=== PATIENT | female | born 1960 | race Caucasian/White ===

== ENCOUNTER 2018-03-04 16:32 | Emergency (ER) | payer BC, OTHER ==
[2018-03-04 17:04] VITALS: BP 160/90
--- NOTE | 2018-03-04 17:19 | UC ---
Lower Extremity/Ankle HPI - HPI Summary HPI Summary: 57 year old female presents with left great toe pain after accidentally dropping a piece of wood on it yesterday morning. States was wearing a slipper at the time of injury. Notes ecchymosis, tenderness, and a blister to the proximal nail fold. Has taken ibuprofen x 1 dose this morning with some relief in pain. Pain worsens with weightbearing and ambulation. Denies erythema, numbness, or tingling. - History of Current Complaint Chief Complaint: UCLowerExtremity Stated Complaint: LEFT BIG TOE INJURY Time Seen by Provider: 03/04/18 16:58 Hx Obtained From: Patient Hx Last Menstrual Period: 02/23/18 Onset/Duration: Sudden Onset, Lasting Hours Severity Currently: Moderate Pain Intensity: 8 Aggravating Factor(s): Standing, Ambulation Alleviating Factor(s): Rest, OTC Meds Able to Bear Weight: Yes - Allergies/Home Medications Allergies/Adverse Reactions: Allergies Allergy/AdvReac Type Severity Reaction Status Date / Time No Known Allergies Allergy Verified 03/04/18 16:58 Home Medications: Home Medications Benazepril/Hydrochlorothiazide [Benazepril HCl/Hydrochlor 20-12.5 mg-] 1 tab PO DAILY 03/04/18 [History Confirmed 03/04/18] Hydrochlorothiazide TAB* [Hydrodiuril TAB*] 25 mg PO DAILY 03/04/18 [History Confirmed 03/04/18] PMH/Surg Hx/FS Hx/Imm Hx Cardiovascular History: Hypertension - Surgical History Surgical History: Yes Surgery Procedure, Year, and Place: ABLATION. NOSE SX. HERNIA REPAIN. LEFT KNEE - Family History Family History: Noncontributory - Social History Occupation: Employed Full-time Lives: With Family Alcohol Use: None Substance Use Type: None Smoking Status (MU): Never Smoked Tobacco Review of Systems All Other Systems Reviewed And Are Negative: Yes Constitutional: Positive: Negative Skin: Positive: Other - See HPI Respiratory: Positive: Negative Cardiovascular: Positive: Negative Motor: Positive: Negative Neurovascular: Positive: Negative Musculoskeletal: Positive: Other: - See HPI Neurological: Positive: Negative Is Patient Immunocompromised?: No Physical Exam Triage Information Reviewed: Yes Appearance: Well-Appearing, No Pain Distress, Well-Nourished Vital Signs: Initial Vital Signs Temp 97.5 F 03/04/18 16:55 Pulse 75 03/04/18 16:55 Resp 16 03/04/18 16:55 BP 160/90 03/04/18 16:55 Pulse Ox 99 03/04/18 16:55 Respiratory: Positive: No respiratory distress Cardiovascular: Positive: Pulses Normal Musculoskeletal: Positive: Other: - Tenderness and eccymosis noted to left great toe. There is an intact blister with clear serous fluid to proximal nail fold. There is a moderate subungal hematoma noted. No gross deformity. Neurological: Positive: Alert, Other: - Sensation intact distally. Skin Exam: Other - See above. Diagnostics - Radiology No standard instances Radiology Interpretation Completed By: Radiologist Summary of Radiographic Findings: Patient Name: LISA PETIT Medical Record#: [id number]. Ordering Physician: Davide Parisi NP Acct.#: [id number]. : 1960 Age: 57 Sex: F Location: [facility]. Exam Date: 1710 ADM Status: REG ER. Order Information: TOE LEFT GREAT. Accession Number: [id number]. CPT: 20228. HISTORY: pain s/p crush injury. COMPARISONS : None. VIEWS: 3 , Frontal, lateral, and oblique views of the first digit of the left foot. FINDINGS: BONE DENSITY: Normal. BONES: There is a nondisplaced fracture of the tuft of the distal phalanx of the first. digit. JOINTS: There is no arthropathy. ALIGNMENT: There is no dislocation. SOFT TISSUES: Unremarkable. OTHER FINDINGS: None. IMPRESSION: NONDISPLACED FRACTURE OF THE TUFT OF DISTAL PHALANX OF THE FIRST DIGIT. Lower Extremity Course/Dx - Course Course Of Treatment: 57 year old female presents with left great toe pain s/p dropping a piece of wood on her toe yesterday morning. Exam reveals left great toe ecchymosis, sunungual hematoma, and truamatic bulla to proximal nailfold. X- ray shows nondisplaced tuft fracture. Recommend conservative treatment with post -op shoe, NSAIDs, RICE, and good wound care. She is to follow up with orthopedic surgery within 7 days for evaluation. Warning symptoms reviewed. Verbalizes understanding and agrees with POC. - Differential Dx/Diagnosis Differential Diagnosis/HQI/PQRI: Contusion, Dislocation, Fracture (Closed), Infection, Subungual Hematoma Provider Diagnoses: Nondisplaced tuft fracture of left great toe, subungal hematoma, traumatic bulla Discharge - Sign-Out/Discharge Documenting (check all that apply): Patient Departure All imaging exams completed and their final reports reviewed: Yes - Discharge Plan Condition: Stable Disposition: HOME Prescriptions: Naproxen [Naproxen 500 mg tab] 500 mg PO Q12HR #30 tablet Patient Education Materials: Toe Fracture (ED) Referrals: Dulce Galvan PA [Primary Care Provider] - Yassine Morfin MD [Medical Doctor] - 7 Days (Follow up within 7 days for evaluation and treatment. Call for appointment.) Additional Instructions: Your x-ray of the toe performed in the clinic today showed a nondisplaced tuft fracture (break at the tip of the toe) of the left great toe. Wear the post-op shoe that was provided to you. You may remove to sleep and shower but should wear the rest of the time for support. Rest the foot and much as possible. You may walk and bear weight as tolerated. Apply ice for 15-20 minutes 4 times a day for next few days. Keep the foot elevated to help reduce swelling. Do not open the blister on your toe as this could increase the risk of infection. If it opens on its own, keep the wound clean with a gentle soap and water, apply a small amount of antibiotic ointment, and cover with a Band-Aid. You also have a subungual hematoma (collection of blood under the toenail). This will likely resolve on its own however there is a change you may lose the toenail. Follow up with Dr. Morfin, orthopedic surgery, within 7 days for evaluation and treatment. Call Tuesday for an appointment. Seek immediate medical attention in the emergency room if you develop fever greater than 100.5 F, have redness that spreads, increased swelling of the toe, pus draining from the wound, pain that is not managed with pain medication, or any worsening of symptoms. - Billing Disposition and Condition Condition: STABLE Disposition: Home
== END 2018-03-04 17:58 | disposition home or self-care (01) ==
LOC: UCCORT 16:32
DX: S92.425A Nondisplaced fracture of distal phalanx of left great toe, initial encounter for closed fracture (principal); S90.212A Contusion of left great toe with damage to nail, initial encounter; R23.8 Other skin changes; W20.8XXA Other cause of strike by thrown, projected or falling object, initial encounter; Y92.9 Unspecified place or not applicable
CPT/HCPCS: 99203; G0463

== ENCOUNTER 2019-02-23 10:33 | Inpatient (IN) | payer BC ==
--- NOTE | 2019-02-13 15:45 | HP ---
DATE OF ADMISSION: 02/23/2019. DATE OF OFFICE VISIT: 02/12/2019. ATTENDING SURGEON: Dr. Qi Metzger * (dictated by OMID Wing). PROCEDURE: Right total knee arthroplasty. CHIEF COMPLAINT: Right knee pain. HISTORY OF PRESENT ILLNESS: Ms. Enriquez is a 58-year-old female with continued complaints of right knee pain. She has failed conservative treatment and elected to proceed with a right total knee arthroplasty. PAST MEDICAL HISTORY: Hypertension. PAST SURGICAL HISTORY: Stent placement left lower extremity, nasal surgery, umbilical hernia repair, uterine ablation, and a left knee arthroscopy. MEDICATIONS: 1. Triamterene 25 mg a day. 2. Benazepril 40 mg a day. ALLERGIES: No known drug allergies. FAMILY HISTORY: Coronary artery disease, diabetes, cancer. SOCIAL HISTORY: She is a 58-year-old female. She lives with her . She does not smoke or use drugs or alcohol. REVIEW OF SYSTEMS: A complete 14 point review of systems was reviewed with the patient and is all negative or noncontributory. She denies a history of DVT, PE , hepatitis, HIV, or anesthesia problems. PHYSICAL EXAMINATION GENERAL: She is well-developed, well-nourished, in no acute distress. VITAL SIGNS: The patient is 5 feet tall, weighs 181 pounds. Blood pressure 124 /72, heart rate 76. HEENT: Normocephalic, atraumatic. NECK: Supple, no palpable lymph nodes. CARDIO: Regular rate and rhythm. Strong S1, S2. PULMONARY: Lungs are clear to auscultation bilaterally. ABDOMEN: Soft, nontender, nondistended. MUSCULOSKELETAL: Right lower extremity: Skin is intact. There are no open wounds or abrasions. She walks with an antalgic type gait favoring her right knee. Range of motion is 15 to 75 degrees of flexion with significant patellofemoral crepitus. She has a 2+ dorsalis pedis pulse. She is able to dorsiflex and plantarflex and has intact sensation. NEUROLOGIC: She is alert and oriented times three. ASSESSMENT AND PLAN: Ms. Enriquez is a 58-year-old female with end- stage osteoarthritis of the right knee. She has failed conservative treatment and elected to proceed with a right total knee arthroplasty. The surgery is scheduled for 02/23/[address] Metzger discussed the risks and benefits of this surgery at today's visit and all of her questions were answered. She will follow- up with Dr. Metzger two weeks after the surgery. OMID WING [id number]/[facility] #: [id number] JW
[~2019-02-23 10:33] MED LIST: Acetaminophen TAB* 325 MG PO ONE; Buffered Lidocaine 1% SYRIN* 1 ML/SYRINGE INTRADERM ONE; Gabapentin CAP(*) 300 MG PO ONE; Lactated Ringers 1000 ML Bag* 1,000 ML IV SCH; Tranexamic Acid 1,000 MG in NS 0.9% 50 ML* (outpatient use) IV SCH; celeCOXIB CAP* 200 MG PO ONE
--- OUTSIDE RECORDS SUMMARY | 2019-02-23 10:37 | XMS REPORT | Continuity of Care Document ---
:1960 External Reference #:[id number] Author Name Qi Metzger M.D. (transmitted by agent of provider Tierney Mo) Address [address] [place] [address] [place] [address] Care Team Providers Name Role Phone Dulce Galvan RPA - Medical Care Team Information Enforcement Safety Officer [phone] Dulce Galvan RPA - Medical Care Team Information Enforcement Safety Officer Al Leal MD - Surgery Care Team Information Enforcement Safety Officer [phone] Dulce Galvan RPA - Medical Care Team Information Enforcement Safety Officer [phone] Problems Active Problems Provider Date Essential hypertension OMID Schmidt Onset: 08/22/2018 Localized, primary osteoarthritis Qi Metzger M.D. Onset: 12/27/2018 Family history of breast cancer OMID Schmidt Onset: 02/13/2019 Note: mother, MGM Social History Type Date Description Comments Sex Unknown Tobacco Use Start: Unknown Never Smoked Cigarettes ETOH Use Denies alcohol use ETOH Use Denies alcohol use Tobacco Use Start: Unknown Patient has never smoked Recreational Drug Use Denies Drug Use Tobacco Use Start: Unknown Patient has never smoked Smoking Status Reviewed: 02/13/19 Patient has never smoked Exercise Type/Frequency Exercises sporadically Exercise Type/Frequency Does not exercise Allergies, Adverse Reactions, Alerts Description No Known Drug Allergies Medications Active Medications SIG Qnty Indications Ordering Provider Date Maxzide-25 1 tab by mouth 90tabs Arnav 09/14/2018 37.5-25mg every day MD Charli Tablets Benazepril HCL Take 1 Tablet By 90tabs Arnav 08/22/2018 40mg Mouth Once Daily MD Charli Tablets History Medications Tumeric 2 tablets daily Arnav Augustin 09/21/2018 - 02/13/2019 Terbinafine HCL 1 by mouth 90tabs B35.1 Arnav Augustin 09/21/2018 - every day 12/25/2018 250mg Tablets Medications Administered in Office Medication SIG Qnty Indications Ordering Provider Date Depomedrol 40MG Qi Metzger M.D. 12/27/2018 Injection Immunizations CPT Code Status Date Vaccine Lot # [id number] Given 02/13/2019 Tdap - Tetanus/Diptheria/Acellular Tdap/2E3EH/ Private Pertussis Vital Signs Date Vital Result Comment 02/13/2019 10:25am Height 60 inches 5'0" Weight 185.56 lb Heart Rate 76 /min BP Systolic Sitting 128 mmHg BP Diastolic Sitting 74 mmHg O2 % BldC Oximetry 98 % BMI (Body Mass Index) 36.2 kg/m2 02/12/2019 10:18am Height 60 inches 5'0" Weight 181.75 lb Heart Rate 76 /min BP Systolic 124 mmHg BP Diastolic 72 mmHg Respiratory Rate 12 /min Pain Level 5 BMI (Body Mass Index) 35.5 kg/m2 Results Test Date Facility Test Result H/L Range Note Urinalysis Profile 02/12/2019 [facility] Urine Color Yellow [address] [place] [address] [phone] Urine Appearance Cloudy Urine Specific Castella 1.016 Normal 1.010-1.030 Urine pH 6.0 Normal 5-9 Urine Urobilinogen Negative Negative Urine Ketones Negative Negative Urine Protein Negative Negative Urine Leukocytes 1+ Abnormal Negative Urine Blood Negative Negative Urine Nitrite Negative Negative Urine Bilirubin Negative Negative Urine Glucose Negative Negative Urine White Blood Cell Trace(0-5/hpf) Absent Urine Red Blood Cell Trace(0-2/hpf) Absent Urine Bacteria Absent Absent CBC Auto 02/12/2019 [facility] White Blood 7.0 10^3/uL Normal 3.5-10.[address] [place] [address] [phone] Red Blood Count 4.60 10^6/uL Normal 3.70-4.87 Hemoglobin 12.5 g/dL Normal 12.0-16.0 Hematocrit 37 % Normal 35-47 Mean Corpuscular Volume 81 fL Normal 80-97 Mean Corpuscular Hemoglobin 27 pg Normal 27-31 Mean Corpuscular HGB Conc 34 g/dL Normal 31-36 Red Cell Distribution Width 13 % Normal 10-15 Platelet Count 367 10^3/uL Normal 150-450 Mean Platelet Volume 8.2 fL Normal 7.4-10.4 Abs Neutrophils 4.6 10^3/uL Normal 1.5-7.7 Abs Lymphocytes 1.7 10^3/uL Normal 1.0-4.8 Abs Monocytes 0.5 10^3/uL Normal 0-0.8 Abs Eosinophils 0.2 10^3/uL Normal 0-0.6 Abs Basophils 0.1 10^3/uL Normal 0-0.2 Abs Nucleated RBC 0.0 10^3/uL Granulocyte % 65.3 % Lymphocyte % 23.7 % Monocyte % 7.8 % Eosinophil % 2.4 % Basophil % 0.8 % Nucleated Red Blood Cells % 0.0 Inr/Protime 02/12/2019 [facility] Inr 0.98 Normal 0.82-1.[address] [place] [address] [phone] Laboratory test 02/12/2019 [facility] Partial 33.0 Normal 26.0 -38.[address] [place] [address] Time PTT [phone] Comp Metabolic 02/12/2019 [facility] Sodium 139 mmol/L Normal 135-[address] [place] [address] [phone] Potassium 4.0 mmol/L Normal 3.5-5.0 Chloride 101 mmol/L Normal 101-111 Co2 Carbon Dioxide 30 mmol/L Normal 22-32 Anion Gap 8 mmol/L Normal 2-11 Glucose 76 mg/dL Normal 70-100 Blood Urea Nitrogen 24 mg/dL Normal 6-24 Creatinine 0.90 mg/dL Normal 0.51-0.95 BUN/Creatinine Ratio 26.7 High 8-20 Calcium 10.0 mg/dL Normal 8.6-10.3 Total Protein 7.0 g/dL Normal 6.4-8.9 Albumin 4.3 g/dL Normal 3.2-5.2 Globulin 2.7 g/dL Normal 2-4 Albumin/Globulin Ratio 1.6 Normal 1-3 Total Bilirubin 0.50 mg/dL Normal 0.2-1.0 Alkaline Phosphatase 90 U/L Normal 34-104 Alt 10 U/L Normal 7-52 Ast 15 U/L Normal 13-39 Egfr Non- 64.8 >60 Egfr 78.4 >60 2 Type & Screen 02/12/2019 [facility] Patient Blood Type B Positive [address] [place] [address] [phone] Antibody Screen NEGATIVE Urine Culture And 02/12/2019 [facility] Urine Culture SEE RESULT [address] [place] [address] [phone] 1 Standard intensity warfarin therapeutic range: 2.0-3.0 High intensity warfarin therapeutic range: 2.5-3.5 2 Because ethnic data is not always readily available, this report includes an eGFR for both -Americans and non- Americans. The National Kidney Disease Education Program (NKDEP) does not endorse the use of the MDRD equation for patients that are not between the ages of 18 and 70, are , have extremes of body size, muscle mass, or nutritional status, or are non- or non-. According to the National Kidney Foundation, irrespective of diagnosis, the stage of the disease is based on the level of kidney function: Stage Description GFR(mL/min/1.73 m(2)) 1 Kidney damage with normal or decreased GFR 90 2 Kidney damage with mild decrease in GFR 60-89 3 Moderate decrease in GFR 30-59 4 Severe decrease in GFR 15-29 5 Kidney failure <15 (or dialysis) 3 SEE RESULT BELOW Name: JENNIFER SANCHEZ : [address]: Qi Metzger MD Acct: [id number] Unit: [id number] AGE: 58 Location: PAT Re02/12/19 SEX: F Status: REG REF SPEC: [id number] HUYEN: 02/12/19-1230 [facility] DR: Qi Metzger MD REQ: [id number] RECD: 02/12/19 STATUS: RASHAAD BARCENAS DR: Dulce Galvan PA _ SOURCE: URINE SPDESC: ORDERED: Urine Culture QUERIES: Urine Source: Clean Catch Procedure Result Reported Site Urine Culture Final 02/13/19- 1211 ML No Growth (<1,000 CFU/mL) * ML - Main Lab . END OF REPORT DEPARTMENT OF PATHOLOGY, [address], [place], [place] [address] Hank Marquez M.D. Director [facility] # [id number] Procedures Date Code Description Status 12/27/2018 93233 Inject/Drain Joint/Bursa Major W/O US Completed 03/09/2017 92910976 Mammogram Completed Medical Devices Description No Information Available Encounters Type Date Location Provider Dx Diagnosis Office Visit 12/27/2018 [facility] Qi Metzger, M25.561 Pain in right 10:30a at [place] M.DBran knee M25.562 Pain in left knee M25.462 Effusion, left knee M25.461 Effusion, right knee M17.0 Bilateral primary osteoarthritis of knee Office Visit 09/21/2018 11:30a [employer] Primary Dulce I10 Essential (primary ) Care Mandy, OMID hypertension B35.1 Tinea unguium M17.0 Bilateral primary osteoarthritis of knee Assessments Date Code Description Provider 02/13/2019 Z01.818 Encounter for other preprocedural examination Dulce Galvan, OMID 02/13/2019 M25.561 Pain in right knee Dulce Galvan, PA 02/13/2019 M17.9 Osteoarthritis of knee, unspecified Dulce Galvan, OMID 02/13/2019 I10 Essential (primary) hypertension uDlce Galvan, OMID 02/13/2019 Z23 Encounter for immunization Dulce Galvan PA 02/13/2019 R82.81 Pyuria OMID Schmidt 02/12/2019 M25.561 Pain in right knee Qi Metzger M.D. 02/12/2019 M25.461 Effusion, right knee Qi Metzger M.D. 02/12/2019 M17.0 Bilateral primary osteoarthritis of knee Qi Metzger M.D. 01/24/2019 M25.561 Pain in right knee Qi Metzger M.D. 01/24/2019 M25.562 Pain in left knee Qi Metzger M.D. 01/24/2019 M25.462 Effusion, left knee Qi Metzger M.D. 01/24/2019 M25.461 Effusion, right knee Qi Yassine, M.D. 01/24/2019 M17.0 Bilateral primary osteoarthritis of knee Qi Metzger M.D. 12/27/2018 M25.561 Pain in right knee Qi Metzger M.D. 12/27/2018 M25.562 Pain in left knee Claudia Nobles.DBran 12/27/2018 M25.462 Effusion, left knee Qi Metzger M.D. 12/27/2018 M25.461 Effusion, right knee Qi Metzger M.D. 12/27/2018 M17.0 Bilateral primary osteoarthritis of knee Qi Metzger M.D. 09/21/2018 I10 Essential (primary) hypertension OMID Schmidt 09/21/2018 B35.1 Tinea unguium OMID Schmidt 09/21/2018 M17.0 Bilateral primary osteoarthritis of knee OMID Schmidt Plan of Treatment Future Appointment(s):03/07/2019 10:00 am - Qi Metzger M.D. at [facility] at Ckidtd3502/23/2019 2:30 pm - Qi Metzger M.D. at [facility] at Tzpldz0602/13/2019 - Dulce Galvan PAZ01.818 Encounter for other preprocedural pjlubrnchmfE10.561 Pain in right kneeM17.9 Osteoarthritis of knee, unspecifiedComments:R>LI10 Essential (primary) hypertensionComments: Continue current medication(s): Benazepril 40mg daily, Triamp-HCTZ 37.5-25mg [id number] Encounter for immunizationComments:Tdap administered today.R82.81 PyuriaNew Labs:Ua Routine, Ordered: 02/13/19Comments:Culture is pending ( collected 02/12/[address] [facility]) Functional Status Description No Information Available Mental Status Description No Information Available Referrals Refer to Reason for Referral Status Appt Date Qi Metzger M.D. Bilateral knee pain Patient Declined [address] [place] [address] [phone]
--- OUTSIDE RECORDS SUMMARY | 2019-02-23 10:37 | XMS REPORT | Continuity of Care Document ---
:02/26/1961 External Reference #:[id number] Author Name Qi Metzger M.D. (transmitted by agent of provider Marta Bardales) Address [address] [facility] [place] [address] Care Team Providers Name Role Phone Dulce Galvan RPA - Medical Care Team Information Director Of Parks And Recreation Problems Active Problems Provider Date Localized, primary osteoarthritis Qi Metzger M.D. Onset: 12/27/2018 Social History Type Date Description Comments Sex Unknown ETOH Use Denies alcohol use Tobacco Use Start: Unknown Patient has never smoked Smoking Status Reviewed: 12/27/18 Patient has never smoked Exercise Type/Frequency Does not exercise Allergies, Adverse Reactions, Alerts Description No Known Drug Allergies Medications Active Medications SIG Qnty Indications Ordering Provider Date B/P Med Unknown Fluid Pill Unknown Immunizations Description No Information Available Vital Signs Date Vital Result Comment 12/27/2018 11:34am Height 60 inches 5'0" Weight 175.00 lb Heart Rate 70 /min BP Systolic 132 mmHg BP Diastolic 78 mmHg Respiratory Rate 12 /min Pain Level 6 BMI (Body Mass Index) 34.2 kg/m2 Results Description No Information Available Procedures Date Code Description Status 12/27/2018 37954 Inject/Drain Joint/Bursa Major W/O US Completed Medical Devices Description No Information Available Encounters Type Date Location Provider Dx Diagnosis Office Visit 12/27/2018 [facility] Qi Metzger, M25.561 Pain in right 10:30a [facility] knee M25.562 Pain in left knee M25.462 Effusion, left knee M25.461 Effusion, right knee M17.0 Bilateral primary osteoarthritis of knee Assessments Date Code Description Provider 12/27/2018 M25.561 Pain in right knee Qi Metzger M.D. 12/27/2018 M25.562 Pain in left knee Qi Metzger M.D. 12/27/2018 M25.462 Effusion, left knee Qi Metzger M.D. 12/27/2018 M25.461 Effusion, right knee Qi Metzger M.D. 12/27/2018 M17.0 Bilateral primary osteoarthritis of knee Qi Metzger M.D. Plan of Treatment Future Appointment(s):01/24/2019 11:15 am - Qi Metzger M.D. at [facility]12/27/2018 - Qi Metzger M.D.M25.561 Pain in right kneeNew Xrays:Knees Bilateral, Ordered: 12/27/18Follow up:Follow up: 4 qlnauM07.562 Pain in left kneeNew Xrays:Knees Bilateral, Ordered: 12/27/18M25.462 Effusion, left kneeM25.461 Effusion, right kneeM17.0 Bilateral primary osteoarthritis of knee Functional Status Description No Information Available Mental Status Description No Information Available Referrals Description No Information Available
--- OUTSIDE RECORDS SUMMARY | 2019-02-23 10:37 | XMS REPORT | Continuity of Care Document ---
:1960 External Reference #:[id number] Author Name Qi Metzger M.D. (transmitted by agent of provider Marta Bardales) Address [address] [place] [address] Care Team Providers Name Role Phone Dulce Galvan RPA - Medical Care Team Information Source Water Protection Specialist Problems Active Problems Provider Date Localized, primary [...] Available Procedures Date Code Description Status 12/27/2018 50935 Inject/Drain Joint/Bursa Major W/O US Completed Medical Devices Description No Information Available Encounters Description No Information Available Assessments Date Code Description Provider 12/27/2018 M25.561 Pain in right knee Qi Metzger M.D. 12/27/2018 M25.562 Pain in left knee Qi Metzger M.D. 12/27/2018 M25.462 Effusion, left knee Qi Metzger M.D. 12/27/2018 M25.461 Effusion, right knee Qi Metzger M.D. 12/27/2018 M17.0 Bilateral primary osteoarthritis of knee Qi Metzger M.D. Plan of Treatment Future Appointment(s):01/24/2019 11:15 am - [facility].D. at [facility]12/27/2018 - Qi Metzger M.D.M25.561 Pain in right kneeNew Xrays:Knees Bilateral, Ordered: 12/27/18Follow up:Follow up: 4 sxccoX23.562 Pain in left kneeNew Xrays:Knees Bilateral, Ordered: 12/27/18M25.462 Effusion, left kneeM25.461 Effusion, right kneeM17.0 Bilateral primary osteoarthritis of knee Functional Status Description No Information Available Mental Status Description No Information Available Referrals Description No Information Available
--- OUTSIDE RECORDS SUMMARY | 2019-02-23 10:37 | XMS REPORT | Continuity of Care Document ---
:1960 External Reference #:[id number] Author Name Qi Metzger M.D. (transmitted by agent of provider Beulah Red) Address [address] [facility] [place] [address] Care Team Providers Name Role Phone Dulce Galvan RPA - Medical Care Team Information Sawdust Drier [phone] Problems Active Problems Provider Date Localized, primary osteoarthritis Qi Metzger M.D. Onset: 12/27/2018 Social History Type Date Description Comments Sex Unknown ETOH Use Denies alcohol use Tobacco Use Start: Unknown Patient has never smoked Smoking Status Reviewed: 01/24/19 Patient has never smoked Exercise Type/Frequency Does not exercise Allergies, Adverse Reactions, Alerts Description No Known Drug Allergies Medications Active Medications SIG Qnty Indications Ordering Provider Date B/P Med Unknown Fluid Pill Unknown Medications Administered in Office Medication SIG Qnty Indications Ordering Provider Date Depomedrol 40MG Qi Metzger M.D. 12/27/2018 Injection Immunizations Description No Information Available Vital Signs Date Vital Result Comment 01/24/2019 11:44am Height 60 inches 5'0" Weight 175.00 lb BP Systolic 116 mmHg BP Diastolic 76 mmHg Respiratory Rate 18 /min Body Temperature 97.5 F Pain Level 8 BMI (Body Mass Index) 34.2 kg/m2 12/27/2018 11:34am Height 60 inches 5'0" Weight 175.00 lb Heart Rate 70 /min BP Systolic 132 mmHg BP Diastolic 78 mmHg Respiratory Rate 12 /min Pain Level 6 BMI (Body Mass Index) 34.2 kg/m2 Results Description No Information Available Procedures Date Code Description Status 12/27/2018 24440 Inject/Drain Joint/Bursa Major W/O US Completed Medical Devices Description No Information Available Encounters Type Date Location Provider Dx Diagnosis Office Visit 12/27/2018 [facility] Qi Metzger, M25.561 Pain in right 10:30a at [place] M.Kaylin knee M25.562 Pain in left knee M25.462 Effusion, left knee M25.461 Effusion, right knee M17.0 Bilateral primary osteoarthritis of knee Assessments Date Code Description Provider 01/24/2019 M25.561 Pain in right knee Qi Metzger M.D. 01/24/2019 M25.562 Pain in left knee Qi Metzger M.D. 01/24/2019 M25.462 Effusion, left knee Qi Metzger M.D. 01/24/2019 M25.461 Effusion, right knee Qi Metzger M.D. 01/24/2019 M17.0 Bilateral primary osteoarthritis of knee Qi Metzger M.D. 12/27/2018 M25.561 Pain in right knee Qi Metzger M.D. 12/27/2018 M25.562 Pain in left knee Qi Metzger M.D. 12/27/2018 M25.462 Effusion, left knee Qi Metzger M.D. 12/27/2018 M25.461 Effusion, right knee Qi Metzger M.D. 12/27/2018 M17.0 Bilateral primary osteoarthritis of knee Qi Metzger M.D. Plan of Treatment Future Appointment(s):03/06/2019 3:30 pm - [facility]26[facility] 11:30 am - Qi Metzger M.D. at [facility]01/24/2019 - Qi Metzger M.D.M25.561 Pain in right kneeFollow up:Follow up: 7-10 days before sqtggwnQ97.562 Pain in left kneeM25.462 Effusion, left kneeM25.461 Effusion, right kneeM17.0 Bilateral primary osteoarthritis of knee Functional Status Description No Information Available Mental Status Description No Information Available Referrals Description No Information Available
--- OUTSIDE RECORDS SUMMARY | 2019-02-23 10:37 | XMS REPORT | Continuity of Care Document ---
:1960 External Reference #:[id number] Author Name Qi Metzger M.D. (transmitted by agent of provider Rebecca Perez) Address [address] [place] [address] [place] [address] Care Team Providers Name Role Phone Dulce Galvan RPA - Medical Care Team Information Director Of Early Childhood Education Dulce Galvan RPA - Medical Care Team Information Director Of Early Childhood Education Al Leal MD - Surgery Care Team Information Director Of Early Childhood Education Dulce Galvan RPA - Medical Care Team Information Director Of Early Childhood Education Problems Active Problems Provider Date Essential hypertension [...] Patient has never smoked Smoking Status Reviewed: 02/12/19 Patient has never smoked Exercise Type/Frequency Exercises sporadically Exercise Type/Frequency Does not exercise Allergies, Adverse Reactions, Alerts Description No Known Drug Allergies Medications Active Medications SIG Qnty Indications Ordering Provider Date Tumeric 2 tablets daily Arnav 09/21/2018 MD Charli Terbinafine HCL 1 by mouth every 90tabs B35.1 Arnav 09/21/2018 250mg day MD Charli Tablets Maxzide-25 1 tab by mouth 90tabs Arnav 09/14/2018 37.5-25mg every day MD Charli Tablets Benazepril HCL Take 1 Tablet By 90taorly José 08/22/2018 40mg Mouth Once Daily MD Charli Tablets B/P Med Unknown Fluid Pill Unknown Medications Administered in Office Medication SIG Qnty Indications Ordering Provider Date Depomedrol 40MG Qi Metzger M.D. 12/27/2018 Injection Immunizations Description No Information Available Vital Signs Date Vital Result Comment 02/12/2019 10:18am Height 60 inches 5'0" Weight 181.75 lb Heart Rate 76 /min BP Systolic 124 mmHg BP Diastolic 72 mmHg Respiratory Rate 12 /min Pain Level 5 BMI (Body Mass Index) 35.5 kg/m2 01/24/2019 11:44am Height 60 inches 5'0" Weight 175.00 lb BP Systolic 116 mmHg BP Diastolic 76 mmHg Respiratory Rate 18 /min Body Temperature 97.5 F Pain Level 8 BMI (Body Mass Index) 34.2 kg/m2 Results Description No Information Available Procedures Date Code Description Status 12/27/2018 78073 Inject/Drain Joint/Bursa Major W/O US Completed 03/09/2017 27052269 Mammogram Completed Medical Devices Description No Information Available Encounters Type Date Location Provider Dx Diagnosis Office Visit 12/27/2018 [facility] Qi Metzger, M25.561 Pain in right 10:30a at [place] M.D. knee M25.562 Pain in left knee M25.462 Effusion, left knee M25.461 Effusion, right knee M17.0 Bilateral primary osteoarthritis of knee Office Visit 09/21/2018 11:30a [place] [facility] I10 Essential (primary ) Care OMID Galvan hypertension B35.1 Tinea unguium M17.0 Bilateral primary osteoarthritis of knee Assessments Date Code Description Provider 02/12/2019 M25.561 Pain in right knee Qi Metzger M.D. 02/12/2019 M25.461 Effusion, right knee Qi Metzger M.D. 02/12/2019 M17.0 Bilateral primary osteoarthritis of knee Qi Metzger M.D. 01/24/2019 M25.561 Pain in right knee Qi Metzger M.D. 01/24/2019 M25.562 Pain in left knee Qijr Metzger, M.DBran 01/24/2019 M25.462 Effusion, left knee Qijr Metzger, M.DBran 01/24/2019 M25.461 Effusion, right knee Qi Yassine, M.D. 01/24/2019 M17.0 Bilateral primary osteoarthritis of knee Magalis NoblesDBran 12/27/2018 M25.561 Pain in right knee Qi Metzger M.DBran 12/27/2018 M25.562 Pain in left knee Qijr Metzger, M.D. 12/27/2018 M25.462 Effusion, left knee Qijr Metzger, M.DBran 12/27/2018 M25.461 Effusion, right knee Qijr Metzger, M.D. 12/27/2018 M17.0 Bilateral primary osteoarthritis of knee Qi Metzger M.D. 09/21/2018 I10 Essential (primary) hypertension OMID Schmidt 09/21/2018 B35.1 Tinea unguium OMID Schmidt 09/21/2018 M17.0 Bilateral primary osteoarthritis of knee OMID Schmidt Plan of Treatment Future Appointment(s):03/07/2019 10:00 am - Qi Metzger M.D. at [facility]02/21/2019 11:00 am - OMID Schmidt at [facility]02/23/2019 2:30 pm - [facility] 10:00 am - OMID Schmidt at [facility]02/12/2019 - Qi Metzger M.D.M25.561 Pain in right kneeFollow up:Follow up: 2 weeks after kskgqnbE76.461 Effusion, right kneeM17.0 Bilateral primary osteoarthritis of knee Functional Status Description No Information Available Mental Status Description No Information Available Referrals Refer to Reason for Referral Status Appt Date Qi Metzger M.D. Bilateral knee pain Patient Declined [address] [place] [address] [phone]
--- OUTSIDE RECORDS SUMMARY | 2019-02-23 10:37 | XMS REPORT | Continuity of Care Document ---
:1960 External Reference #:[id number] Author Name OMID Schmidt (transmitted by agent of provider Cheryl Venegas) Address [address] [place] [address] Care Team Providers Name Role Phone Dulce Galvan RPA - Medical Care Team Information Retail Security Professional Dulce Galvan RPA - Medical Care Team Information Retail Security Professional Al Leal MD - Surgery Care Team Information Retail Security Professional [phone] Dulce Galvan RPA - Medical Care Team Information Retail Security Professional Problems Active Problems Provider Date Essential hypertension [...] CPT Code Status Date Vaccine Lot # [id number] Given 02/13/2019 Tdap - Tetanus/Diptheria/Acellular Tdap/2E3EH/ Private [...] Result H/L Range Note Urinalysis Profile 02/12/2019 [facility] Urine Color Yellow [address] [place] [address] [phone] Urine Appearance Cloudy Urine Specific [place] 1.016 Normal 1.010-1.030 Urine pH 6.0 Normal 5-9 Urine Urobilinogen Negative Negative Urine Ketones Negative Negative Urine Protein Negative Negative Urine Leukocytes 1+ Abnormal Negative Urine Blood Negative Negative Urine Nitrite Negative Negative Urine Bilirubin Negative Negative Urine Glucose Negative Negative Urine White Blood Cell Trace(0-5/hpf) Absent Urine Red Blood Cell Trace(0-2/hpf) Absent Urine Bacteria Absent Absent CBC Auto 02/12/2019 [facility] White Blood 7.0 10^3/uL Normal 3.5-10.[address] [place] [address] [phone] Red Blood Count 4.60 10^6/uL Normal 3.70-4.87 [...] Red Blood Cells % 0.0 Inr/Protime 02/12/2019 [facility] Inr 0.98 Normal 0.82-1.[address] [place] [address] [phone] Laboratory test 02/12/2019 [facility] Partial 33.0 Normal 26.0 -38.[address] [place] [address] Time PTT [phone] Comp Metabolic 02/12/2019 [facility] Sodium 139 mmol/L Normal 135-[address] [place] [address] [phone] Potassium 4.0 mmol/L Normal 3.5-5.0 Chloride 101 [...] 78.4 >60 2 Type & Screen 02/12/2019 [facility] Patient Blood Type B Positive [address] [place] [address] [phone] Antibody Screen NEGATIVE 1 Standard intensity warfarin therapeutic range: 2.0-3.0 [...] 15-29 5 Kidney failure <15 (or dialysis) Procedures Date Code Description Status 12/27/2018 23164 Inject/Drain Joint/Bursa Major W/O US Completed 03/09/2017 [id number] Mammogram Completed Medical Devices Description No Information Available Encounters Type Date Location Provider Dx Diagnosis Office Visit 12/27/2018 [facility] Qi Metzger, M25.561 Pain in right 10:30a at [place] M.D. knee M25.562 Pain in left knee M25.462 Effusion, left knee M25.461 Effusion, right knee M17.0 Bilateral primary osteoarthritis of knee Office Visit 09/21/2018 11:30a [employer] Primary [facility] I10 Essential (primary ) Care [place] hypertension B35.1 Tinea unguium M17.0 Bilateral primary osteoarthritis of knee Assessments Date Code Description Provider 02/13/2019 Z01.818 Encounter for other preprocedural examination Dulce [place], [place] 02/13/2019 M25.561 Pain in right knee Dulce [place], [place] 02/13/2019 M17.9 Osteoarthritis of knee, unspecified Dulce [place], [place] 02/13/2019 I10 Essential (primary) hypertension Dulce [place], [place] 02/13/2019 Z23 Encounter for immunization Dulce [place], [place] 02/13/2019 R82.81 Pyuria Dulce [place], [place] 02/12/2019 M25.561 Pain in right knee Qi Yassine, M.D. 02/12/2019 M25.461 Effusion, right knee Qi Yassine, M.D. 02/12/2019 M17.0 Bilateral primary osteoarthritis of knee Qi Yassine, M.D. 01/24/2019 M25.561 Pain in right knee Qi Yassine, M.D. 01/24/2019 M25.562 Pain in left knee Qi Yassine, M.D. 01/24/2019 M25.462 Effusion, left knee Qi Yassine, M.D. 01/24/2019 M25.461 Effusion, right knee Qi Yassine, M.D. 01/24/2019 M17.0 Bilateral primary osteoarthritis of knee Qi Yassine, M.D. 12/27/2018 M25.561 Pain in right knee Qi Yassine, M.D. 12/27/2018 M25.562 Pain in left knee Qi Yassine, M.D. 12/27/2018 M25.462 Effusion, left knee Qi Yassine, M.D. 12/27/2018 M25.461 Effusion, right knee Qi Yassine, M.D. 12/27/2018 M17.0 Bilateral primary osteoarthritis of knee Qi Yassine, M.D. 09/21/2018 I10 Essential (primary) hypertension Dulce [place], [place] 09/21/2018 B35.1 Tinea unguium Dulce [place], [place] 09/21/2018 M17.0 Bilateral primary osteoarthritis of knee Dulce [place], [place] Plan of Treatment Future Appointment(s):03/07/2019 10:00 am - Qi Metzger M.D. at [facility] at [facility]2/23/2019 2:30 pm - Qi Metzger M.D. at [facility] at [facility]1302/13/2019 - Dulce Galvan, PAZ01.818 Encounter for other preprocedural fgpbziedeyyT49.561 Pain in right kneeM17.9 Osteoarthritis of knee, unspecifiedComments:R>LI10 Essential (primary) hypertensionComments: Continue current medication(s): Benazepril 40mg daily, Triamp-HCTZ 37.5-25mg [id number] Encounter for immunizationComments:Tdap administered today.R82.81 PyuriaNew Labs:Ua Routine, Ordered: 02/13/19Comments:Culture is pending ( collected 02/12/19 @ [facility]) Functional Status Description No Information Available Mental Status Description No Information Available Referrals Refer to Dr Reason for Referral Status Appt Date Qi Metzger M.D. Bilateral knee pain Patient Declined [address] [place] [address] [phone]
[2019-02-23] MEDS ORDERED: Acetaminophen TAB* 325 MG ONE (11:20)
[2019-02-23] MEDS ORDERED: celeCOXIB CAP* 200 MG ONE (11:20)
[2019-02-23] MEDS ORDERED: Gabapentin CAP(*) 300 MG ONE (11:20)
[2019-02-23] MEDS ORDERED: ceFAZolin 2 GM in NS PREMIX(*) 2 GM/100 ML BAG IVPB ONE (11:21)
[2019-02-23] MEDS ORDERED: ROPIVACAINE 5 MG/ML 30 ML BTL (0.5%) ONE ×2 (11:35→12:59)
[2019-02-23] MEDS ORDERED: fentaNYL* 50 MCG/ML 2 ML VIAL (100 MCG VIAL) ONE ×2 (12:09→12:51)
[2019-02-23] MEDS ORDERED: Midazolam* 1 MG/ML 2 ML VIAL (2 MG) ONE (12:09)
[2019-02-23] MEDS ORDERED: Propofol* 10 MG/ML 20 ML BTL ONE (12:50)
[2019-02-23] MEDS ORDERED: Lidocaine 2% PF* 10 ML AMP ONE (12:50)
[2019-02-23] MEDS ORDERED: Rocuronium* 10 MG/ML VIAL ONE (12:51)
[2019-02-23] MEDS ORDERED: HYDROmorphone INJ1* 1 MG/ML SYRINGE ONE ×3 (13:53→16:01)
[2019-02-23] MEDS ORDERED: Dexamethasone IV* 4 MG/ML 1 ML (4 MG) ONE (13:54)
[2019-02-23] MEDS ORDERED: Naloxone* 0.4 MG/ML 1 ML VIAL IV PRN (14:57)
[2019-02-23] MEDS ORDERED: PROCHLORPERAZINE INJ 5 MG/ML 2 ML VIAL IV PRN (14:57)
[2019-02-23] MEDS ORDERED: oxyCODONE TAB* 5 MG TAB PO PRN (14:57)
[2019-02-23] MEDS ORDERED: Ondansetron INJ* 2 MG/ML VIAL IV PRN ×2 (14:57→15:45)
[2019-02-23] MEDS ORDERED: Glycopyrrolate IV* 0.2 MG/ML 1 ML VIAL ONE (15:01)
[2019-02-23] MEDS ORDERED: Ondansetron INJ* 2 MG/ML VIAL ONE (15:01)
[2019-02-23] MEDS ORDERED: Neostigmine Methylsulfate* 3 MG/3 ML SYRINGE ONE (15:02)
[2019-02-23] MEDS ORDERED: Magnesium Hydroxide LIQ* 30 ML UDC PO PRN (15:45)
[2019-02-23] MEDS ORDERED: oxyCODONE/Acetamin 5/325 MG* TAB PO PRN (15:45)
[2019-02-23] MEDS ORDERED: traZODone TAB* 50 MG TAB PO PRN (15:45)
[2019-02-23] MEDS ORDERED: diPHENhydraMINE PO* 25 MG PO PRN (15:45)
[2019-02-23] MEDS ORDERED: Polyethylene Glycol 3350* 17 GM PACKET PO PRN (15:45)
[2019-02-23] MEDS ORDERED: diPHENhydraMINE IV* 50 MG/ML 1 ml VIAL (BENADRYL) IV PRN (15:45)
[2019-02-23] MEDS ORDERED: Ondansetron ODT TAB* 4 MG PO PRN (15:45)
[2019-02-23] MEDS: HYDROmorphone INJ1* 1 MG/ML SYRINGE IV PRN ×5 (16:01→16:50)
--- NOTE | 2019-02-23 16:49 | PN ---
Progress Note - Progress Note Date of Service: 02/23/19 - Post-op Note: Patient seen in recovery. She can already actively DF/PF with intact sensation and 2+ PT pulses. Her pain is being managed and she will be moved to the floor when stable for transfer.
[2019-02-23] MEDS ORDERED: oxyCODONE TAB* 5 MG TAB ONE ×2 (16:50→16:52)
--- NOTE | 2019-02-23 16:51 | OP ---
Operative Report - Blank - Operative Report Date of Operation: 02/23/19 Note: LISA PETIT 1960 Date of Surgery: 02/23/19 Qi Metzger MD Window Installer: Joana ANNE did help throughout the procedure with preparation of the knee, wound retraction, manipulation of the knee, and wound closure. Anesthesiologist: Cris TAFOYA Anesthesia Type: Spinal Preoperative Diagnosis: Right severe degenerative osteoarthritis of the knee Postoperative Diagnosis: As above Procedure Performed: Right Total Knee Arthroplasty Tourniquet time: 42 minutes Complications: None Specimen: Bone and cartilage from the right knee joint sent to pathology. Hardware Used: Cemented Maldonado and Nephew total knee hardware was used - For the femur a size 5 narrow right oxinium legion posterior stabilized femoral component, for the tibia a size 3 right charo II tibial baseplate, for the insert a size 9mm 3-4 posterior stabilized articular polyethylene insert, and for the patella a size 29 3-peg all poly patella. Brief History/Indication: LISA PETIT was known in clinic and had a history of severe right knee pain and swelling. She failed conservative treatment with anti -inflammatories, pain pills, intra-articular injections and physical therapy. She elected to undergo right total knee arthroplasty due to continued pain and decreased quality of life. Radiographs showed severe end stage osteoarthritis of the knee with bone on bone contact. Informed consent was obtained from the patient. She understood the risks of surgery included but were not limited to: bleeding, infection, damage to nearby structures, intraoperative fracture, nerve palsy, failure of the hardware, early loosening, knee stiffness or loss of motion, anesthesia complications, stroke, heart attack, blood clot and . She wished to proceed. Intra-Operative Findings: Intraoperatively the patient was noted to have severe loss of cartilage in all 3 compartments of the knee. Description of the Procedure: LISA PETIT was identified in the preanesthesia unit. Her right knee was marked as the correct operative side. Informed consent was signed and placed in the chart. The patient was taken to the operating room and placed under anesthesia without complication. A orozco catheter was placed. A tourniquet was placed on the right thigh. The right lower extremity was prepped and draped in the usual sterile fashion. Preoperative time-out was made to correctly identify the patient, side and site. Appropriate intraoperative antibiotics were given within one hour of incision. Tourniquet was inflated. A midline incision was made and carried sharply down to the extensor mechanism. A new 10 blade was used to make a standard medial parapatellar arthrotomy. The patella was subluxed laterally. Electrocautery was used to dissect soft tissue off the superomedial tibia to the midsagittal plane. The knee was flexed up. The anterior horn of the lateral meniscus and the ACL were sharply incised. A drill was used to enter the distal femur. The intramedullary distal femoral cutting guide was pinned on the distal femur. The oscillating saw was used to make the distal femoral cut. The external rotation guide was pinned on the distal femur and the distal femur was sized to a size 5. The size 5 multi-cutting jig was pinned on the distal femur. The oscillating saw was used to make the appropriate 4 chamfer cuts. Next the PCL was completely released. The extramedullary tibial cutting guide was pinned on the proximal tibia and the oscillating saw was used to make the proximal tibial cut perpendicular to the mechanical axis of the tibia. The bone was carefully removed. The knee was brought out into full extension. The spacer block was placed and had excellent fit with the knee in full extension. The medial and lateral ligaments were well balanced. The flexion and extension gaps were well balanced. The knee was flexed up. Lamina size mixer was placed both medially and laterally. Any remaining meniscus was removed with electrocautery. Curved osteotome was used to remove any posterior osteophytes. The tibial tray and drop lyudmila were placed and confirmed a satisfactory tibial cut. The size 5 right narrow femoral trial was impacted onto the distal femur. This trial had excellent fit and stability. The box for the posterior stabilized implant was prepared using a box cut osteotome and a reamer. Next a tibial tray trial and 9 mm insert trial was placed. The knee was taken through a range of motion and had full extension to 130 degrees of flexion. Patellofemoral tracking was satisfactory. The patella was inverted and sized to a size 29. Three peg holes were drilled through the size 29 drill guide. The trial patella was placed and the knee was taken through a range of motion. There was satisfactory patellofemoral tracking. All trials were removed. The tibia was subluxed anteriorly and sized to a size 3. The proximal tibial was prepared with a size 3 keel punch. All bony cut surfaces were irrigated with sterile saline and dried. Final implants were cemented into place starting with the tibia, followed by the femur, and last the patella. A 9 mm insert trial was placed and the knee was brought into full extension. Tourniquet was turned down and the knee was copiously irrigated with sterile saline. Electrocautery was used to obtain meticulous hemostasis. Once the cement had fully cured, the insert trial was removed. Any excess cement was removed from around the hardware and capsule. Final insert chosen was a 9 mm posterior stabilized Charo II articular insert size 3-4. Stability of the insert was checked and noted to be stable. The extensor mechanism was closed using number 1 vicryls. The rest of the incision was closed in a layered fashion using 0 and 2-0 vicryls. The skin was closed using 3-0 nylon suture. Sterile xeroform, 4x4s and webril were used to cover the incision. Luis E wrap and cold pack were used to cover the dressings. The patients anesthesia was reversed without difficulty. She was taken to the PACU in stable condition. Intended weight-bearing will be as tolerated.
--- NOTE | 2019-02-23 17:26 | PN ---
Hospitalist Progress Note Date of Service: 02/23/19 HOSPITALIST ADDENDUM Called by RN because patient had brief episode of SVT, asymptomatic. Will check EKG and electrolytes. Monitor on Telemetry.
[2019-02-23] MEDS ORDERED: Cyclobenzaprine TAB* 10 MG ONE (18:29)
[2019-02-23] MEDS ORDERED: Morphine INJ* 2 MG/ML 1 ML SYRINGE (TWO MG - NEW SYRINGE VERSION) ONE (18:30)
[2019-02-23] MEDS: Morphine INJ* 2 MG/ML 1 ML SYRINGE (TWO MG - NEW SYRINGE VERSION) IV PRN (18:31)
[2019-02-23] MEDS: Lactated Ringers 1000 ML Bag* 1,000 ML IV SCH (18:34)
--- NOTE | 2019-02-23 20:15 | CONS ---
CC: Dulce Galvan PA-C; Dr. Metzger CONSULTATION REPORT: DATE OF CONSULT: 02/23/19 TIME OF EVALUATION: 4:30 p.m. PRIMARY CARE PROVIDER: Dulce Galvan PA-C. REQUESTING PHYSICIAN: Dr. Metzger. REASON FOR CONSULT: Management of co-morbidities. HISTORY OF PRESENT ILLNESS: Mrs. Sanchez is a 58-year-old female with a past medical history of hypert ension and obesity with BMI of 35 who was being followed by Dr. Metzger for right knee pain. She has f jessie conservative therapy and was admitted for right total knee arthroplasty. As per surgery report , the surgery had no complication and at the time of my evaluation, the patient was in the PACU compl aining of significant pain. She was just receiving some Dilaudid at the time I went to see her and s he was sleepy during my interview and could not participate much, so, most of the information is obta ined from her records. PAST MEDICAL HISTORY: 1. Hypertension. 2. Osteoarthritis. 3. Obesity with BMI of 35. PAST SURGICAL HISTORY: 1. Status post umbilical hernia repair in 1987 and status post left knee arthroscopy in 1999. 2. Status post D and C in 2009. 3. Varicose vein procedure with radiofrequency ablation in 2019. FAMILY HISTORY: Her father has history of diabetes and coronary artery disease requiring CABG. Her mother had history of breast cancer and diabetes. Her daughter has history of Crohn disease. SOCIAL HISTORY: The patient denies history of tobacco, alcohol, or drug use. Surrogate decision make r is her daughter, Oneida Newberry, phone number is [phone]. REVIEW OF SYSTEMS: I am unable to obtain from the patient at this time due to her sedation. PHYSICAL EXAMINATION: General: The patient is a middle-aged obese lady, lying in bed, in no acute d istress. Vital Signs: Temperature 97.9, heart rate is 51, respiratory rate 16, oxygen saturation 97 % on 4 L nasal cannula, blood pressure is 140/66. HEENT: Pupils are equal. Moist mucous membranes. CVS: Normal S1, S2. Regular rate and rhythm. Chest: Breath sounds present bilaterally with no ad ded sounds. Abdomen: Soft. Bowel sounds are present. Extremities: The patient has a cryo unit to her right knee. Good pulses bilaterally. Neuro: She is sleepy, but arousable to voice. As descri bed above, she just received Dilaudid and is sedated at this point. ASSESSMENT AND PLAN: Mrs. Sanchez is a 58-year-old female with a past medical history of hypertension and obesity admitted for elective right total knee arthroplasty. 1. Status post right total knee replacement. Management as per ortho. 2. Hypertension. The patient will be continued on her usual medications, benazepril and diuretics, and we will monitor her blood pressure. 3. DVT prophylaxis will be with apixaban as per ortho. 4. Code status is full. TIME SPENT: Approximately 40 minutes were spent with the patient interview, medical records review, and physical examination to complete this consultation. More than half of this time was spent face-to -face with the patient in coordination of care. [id number]/[facility] #: [id number]
[2019-02-23 20:16] LABS: BUN/Creatinine Ratio 28.2 (8-20); Calcium 8.7 mg/dL (8.6-10.3); EGFR African American 92.4 (>60); EGFR Non-African American 76.4 (>60); Magnesium 1.7 mg/dL (1.9-2.7); Potassium 4.2 mmol/L (3.5-5.0)
[2019-02-23] MEDS: Docusate CAP* 100 MG PO SCH (21:17)
[2019-02-23] MEDS: Magnesium Hydroxide LIQ* 30 ML UDC PO SCH (21:17)
[2019-02-23] MEDS: ceFAZolin 1 GM ADVAN(*) 1 GM in NS 0.9% 50 ML* 50 ML IVPB SCH (21:17)
[2019-02-23] MEDS ORDERED: Magnesium Sulfate 2 GM IV* 2 GM/50 ML BAG IVPB ONE (21:22)
[2019-02-23] MEDS: oxyCODONE/Acetamin 5/325 MG* TAB PO PRN (21:27)
[2019-02-23] MEDS ORDERED: Magnesium Sulfate 2 GM IV (Premix) IVPB ONE (22:00)
[2019-02-23] MEDS: Acetaminophen TAB* 325 MG PO SCH (23:57)
[2019-02-24] MEDS: oxyCODONE/Acetamin 5/325 MG* TAB PO PRN ×3 (02:45→12:39)
[2019-02-24] MEDS: ceFAZolin 1 GM ADVAN(*) 1 GM in NS 0.9% 50 ML* 50 ML IVPB SCH ×2 (05:19→12:40)
[2019-02-24] MEDS: Acetaminophen TAB* 325 MG PO SCH ×3 (06:23→22:06)
[2019-02-24] MEDS: Morphine INJ* 2 MG/ML 1 ML SYRINGE (TWO MG - NEW SYRINGE VERSION) IV PRN (06:34)
[2019-02-24 07:12] LABS: Hematocrit 31 % (35-47); Hemoglobin 10.2 g/dL (12.0-16.0); Platelet Count 334 10^3/uL (150-450)
[2019-02-24 07:19] LABS: Calcium 8.7 mg/dL (8.6-10.3); EGFR African American 88.5 (>60); EGFR Non-African American 73.1 (>60); Magnesium 2.2 mg/dL (1.9-2.7); Potassium 4.1 mmol/L (3.5-5.0)
--- NOTE | 2019-02-24 07:39 | PN ---
Progress Note - Progress Note Date of Service: 02/24/19 SOAP: Subjective: resting comfortably, moderate pain, improving with current pain medications Objective: Vital Signs Temp Pulse Resp BP Pulse Ox 98 F 81 18 117/50 99 02/24/19 03:30 02/24/19 03:30 02/24/19 06:34 02/24/19 03:30 02/24/19 03:30 Laboratory Last Values Hgb 10.2 g/dL (12.0-16.0) L 02/24/19 06:05 Hct 31 % (35-47) L 02/24/19 06:05 Plt Count 334 10^3/uL (150-450) 02/24/19 06:05 MPV 8.0 fL (7.4-10.4) 02/24/19 06:05 Sodium 136 mmol/L (135-145) 02/24/19 06:05 Potassium 4.1 mmol/L (3.5-5.0) 02/24/19 06:05 Chloride 100 mmol/L (101-111) L 02/24/19 06:05 Carbon Dioxide 29 mmol/L (22-32) 02/24/19 06:05 Anion Gap 7 mmol/L (2-11) 02/24/19 06:05 BUN 17 mg/dL (6-24) 02/24/19 06:05 Creatinine 0.81 mg/dL (0.51-0.95) 02/24/19 06:05 Est GFR ( Amer) 88.5 (>60) 02/24/19 06:05 Est GFR (Non-Af Amer) 73.1 (>60) 02/24/19 06:05 BUN/Creatinine Ratio 21.0 (8-20) H 02/24/19 06:05 Glucose 122 mg/dL (70-100) H 02/24/19 06:05 Calcium 8.7 mg/dL (8.6-10.3) 02/24/19 06:05 Magnesium 2.2 mg/dL (1.9-2.7) 02/24/19 06:05 dressing c/d/i PE: able to dorsi flex/plantar flex, 2+ DP pulse and intact sensation Assessment: s/p right TKA Plan: 1) PT/OT- WBAT 2) continue current pain regimen 3) Eliquis for DVT prophylaxis 4) Home today or tomorrow once PT goal met
[2019-02-24] MEDS: Docusate CAP* 100 MG PO SCH ×2 (07:54→20:47)
[2019-02-24] MEDS: Magnesium Hydroxide LIQ* 30 ML UDC PO SCH ×2 (07:54→20:47)
[2019-02-24] MEDS: Vitamin THERAPEUTIC TAB PO SCH (07:55)
[2019-02-24] MEDS: Hydrochlorothiazide TAB* 25 MG PO SCH (07:55)
[2019-02-24] MEDS: Lisinopril TAB* 10 MG PO SCH (07:55)
[2019-02-24] MEDS: Apixaban* 2.5 MG TAB PO SCH ×2 (07:56→20:47)
[2019-02-24] MEDS: Triamterene/HCTZ 37.5-25 MG* CAP PO SCH (07:56)
[2019-02-24] MEDS: Cyclobenzaprine TAB* 10 MG PO PRN ×2 (08:58→16:51)
[2019-02-24] MEDS: oxyCODONE TAB* 5 MG TAB PO PRN ×3 (10:00→23:22)
[2019-02-24] MEDS: Lactated Ringers 1000 ML Bag* 1,000 ML IV SCH (10:02)
[2019-02-24] MEDS: traMADol TAB* 50 MG PO PRN ×2 (13:27→22:18)
[2019-02-25] MEDS: oxyCODONE TAB* 5 MG TAB PO PRN ×3 (03:52→15:37)
[2019-02-25] MEDS: Cyclobenzaprine TAB* 10 MG PO PRN (06:10)
[2019-02-25 06:15] LABS: Hematocrit 32 % (35-47); Hemoglobin 10.6 g/dL (12.0-16.0); Mean Platelet Volume 7.8 fL (7.4-10.4); Platelet Count 316 10^3/uL (150-450)
[2019-02-25] MEDS: Acetaminophen TAB* 325 MG PO SCH ×2 (06:24→15:37)
[2019-02-25] MEDS: oxyCODONE/Acetamin 5/325 MG* TAB PO PRN ×2 (07:11→13:43)
[2019-02-25 07:45] VITALS: BP 113/61
--- NOTE | 2019-02-25 08:24 | PN ---
Progress Note - Progress Note Date of Service: 02/25/19 SOAP: Subjective: resting in bed comfortably with no significant complaints Objective: Vital Signs Temp Pulse Resp BP Pulse Ox 98.7 F 81 16 113/61 94 02/25/19 07:44 02/25/19 07:44 02/25/19 07:44 02/25/19 07:44 02/25/19 07:44 Laboratory Last Values Hgb 10.6 g/dL (12.0-16.0) L 02/25/19 05:59 Hct 32 % (35-47) L 02/25/19 05:59 Plt Count 316 10^3/uL (150-450) 02/25/19 05:59 MPV 7.8 fL (7.4-10.4) 02/25/19 05:59 Sodium 136 mmol/L (135-145) 02/24/19 06:05 Potassium 4.1 mmol/L (3.5-5.0) 02/24/19 06:05 Chloride 100 mmol/L (101-111) L 02/24/19 06:05 Carbon Dioxide 29 mmol/L (22-32) 02/24/19 06:05 Anion Gap 7 mmol/L (2-11) 02/24/19 06:05 BUN 17 mg/dL (6-24) 02/24/19 06:05 Creatinine 0.81 mg/dL (0.51-0.95) 02/24/19 06:05 Est GFR ( Amer) 88.5 (>60) 02/24/19 06:05 Est GFR (Non-Af Amer) 73.1 (>60) 02/24/19 06:05 BUN/Creatinine Ratio 21.0 (8-20) H 02/24/19 06:05 Glucose 122 mg/dL (70-100) H 02/24/19 06:05 Calcium 8.7 mg/dL (8.6-10.3) 02/24/19 06:05 Magnesium 2.2 mg/dL (1.9-2.7) 02/24/19 06:05 incision: c/d; dressing changed PE: NVI Assessment: s/p right TKA; POD #2 Plan: 1) PT/OT- WBAT; will work on stairs prior to DC 2) Eliquis BID X 4 weeks 3) Home today, F/U with Dr. Metzger in 2 weeks
--- NOTE | 2019-02-25 09:27 | DS ---
DISCHARGE SUMMARY: DATE OF ADMISSION: 02/23/19 DATE OF DISCHARGE: 02/25/19 SURGEON: Qi Metzger MD * (DICTATED BY OMID WING) PRINCIPAL DIAGNOSIS: Severe osteoarthritis of the right knee. DISCHARGE DIAGNOSIS: Severe osteoarthritis of the right knee. DISCHARGE DISPOSITION: Discharged home in stable condition. HISTORY OF PRESENT ILLNESS: Ms. Sanchez is a 58-year-old female with continued complaints of severe right knee pain secondary to end-stage osteoarthritis. She failed conservative treatment and elected to proceed with a right total knee arthroplasty. HOSPITAL COURSE: Ms. Sanchez was admitted electively to the hospital on 02/23/19 and underwent a right total knee arthroplasty. The surgery was without complications. Postoperatively, she was placed on Eliquis for DVT prophylaxis and postoperative day 1, her H and H was 10 and 31 and on postoperative day 2, 10 and 32. Her vital signs remained stable and she did well with her physical therapy. She was discharged to home. DISCHARGE MEDICATIONS: 1. Percocet 5/325 one to two tabs every 4 to 6 hours for pain. 2. Colace 100 mg tabs 2 to 3 daily as needed for constipation. 3. Eliquis 2.5 mg twice a day for 4 weeks. 4. Hydrochlorothiazide 12.5 mg daily. 5. Lisinopril 20 mg daily. PHYSICAL EXAMINATION: Upon discharge, she was afebrile. Her vital signs were stable. Her wound was clean and dry. She was ambulating well with a walker. She was able to dorsiflex and plantarflex. She has a 2+ dorsalis pedis pulse and intact sensation. DISCHARGE INSTRUCTIONS: Ms. Sanchez was discharged to home. She was given prescription for Percocet for pain, Eliquis twice daily for 4 weeks for DVT prophylaxis. She is weightbearing as tolerated. She can remove her dressing tomorrow and shower. No bath. She can let the soap and water run over the incision, and pat the area dry and she will see Dr. Metzger back in clinic in 2 weeks. OMID WING [id number]/[facility] #: [id number] [facility]
[2019-02-25] MEDS: Hydrochlorothiazide TAB* 25 MG PO SCH (09:55)
[2019-02-25] MEDS: Docusate CAP* 100 MG PO SCH (09:56)
[2019-02-25] MEDS: Apixaban* 2.5 MG TAB PO SCH (09:56)
[2019-02-25] MEDS: Triamterene/HCTZ 37.5-25 MG* CAP PO SCH (09:57)
[2019-02-25] MEDS: Lisinopril TAB* 10 MG PO SCH (09:57)
[2019-02-25] MEDS: Magnesium Hydroxide LIQ* 30 ML UDC PO SCH (09:57)
[2019-02-25] MEDS: Vitamin THERAPEUTIC TAB PO SCH (09:58)
[2019-02-25] MEDS ORDERED: Bisacodyl SUPP* 10 MG SUPP PR PRN (15:45)
== END 2019-02-25 15:45 | disposition home health service (06) | DRG 302 ==
LOC: AA 10:33 → SSU 18:20
PROVIDERS: ADMIT Orthopaedic Surgery Adult Reconstructive Orthopaedic Surgery; ATTEND Orthopaedic Surgery Adult Reconstructive Orthopaedic Surgery
PROC: 0SRC069 Replacement of Right Knee Joint with Oxidized Zirconium on Polyethylene Synthetic Substitute, Cemented, Open Approach (ICD-10-PCS; principal; 2019-02-23 13:30)
DX: M17.11 Unilateral primary osteoarthritis, right knee (principal); I10 Essential (primary) hypertension; F41.9 Anxiety disorder, unspecified; M25.761 Osteophyte, right knee; E83.42 Hypomagnesemia; I87.2 Venous insufficiency (chronic) (peripheral); E66.9 Obesity, unspecified; Z68.35 Body mass index [BMI] 35.0-35.9, adult; Z95.828 Presence of other vascular implants and grafts; Z56.0 Unemployment, unspecified; Z79.899 Other long term (current) drug therapy
CPT/HCPCS: 36415; 80048; 83735; 85014; 85018; 85049; 88305; 88311; 93005; A9270-GY; C1776; J0690; J1100; J1170; J2001; J2250; J2270; J2405; J2704; J2710; J2795; J3010; J3475

== ENCOUNTER 2019-05-01 06:41 | Day surgery (SDC) | payer BC ==
--- NOTE | 2019-04-13 09:18 | HP ---
HISTORY AND PHYSICAL: DATE OF ADMISSION/SURGERY: 05/01/19 DATE OF OFFICE VISIT: 04/06/19 SURGEON: Qi Metzger MD * (DICTATED BY OMID WING) PROCEDURE: Manipulation under anesthesia, right total knee arthroplasty. CHIEF COMPLAINT: Right knee stiffness. HISTORY OF PRESENT ILLNESS: Ms. Sanchez is a 58-year-old female who underwent a right total knee arthroplasty. She has significant stiffness and lacks range of motion. She has elected to proceed with the manipulation under anesthesia. PAST MEDICAL HISTORY: Hypertension. PAST SURGICAL HISTORY: 1. Stent placement. 2. Hernia repair. 3. Uterine ablation. 4. Nasal surgery. 5. Left knee arthroscopy. CURRENT MEDICATIONS: 1. Triamterene 25 mg a day. 2. Benazepril 40 mg a day. 2. Tylenol as needed. 3. Flexeril 10 mg a day as needed. ALLERGIES: No known drug allergies. FAMILY HISTORY: Coronary artery disease, diabetes, and cancer. SOCIAL HISTORY: She is a 58-year-old female who lives with her . She does not smoke. REVIEW OF SYSTEMS: A complete 14-point review of systems was reviewed with the patient and is all negative and noncontributory. PHYSICAL EXAMINATION GENERAL: She is well developed, well nourished, in no acute distress. VITAL SIGNS: She stands 60 inches tall, weighs 176 pounds. Blood pressure is 118/78, heart rate is 98. HEENT: Normocephalic, atraumatic. NECK: Supple. No palpable lymph nodes. PULMONARY: Lungs are clear to auscultation bilaterally. CARDIO: Regular rate and rhythm. Strong S1 and S2. ABDOMEN: Soft, nontender, nondistended. NEUROLOGICAL: She is alert and oriented x3. MUSCULOSKELETAL: Right Lower Extremity: There is a well-healed anterior incision. There is no significant erythema or warmth. There is a mild effusion. She has limited range of motion secondary to stiffness in the knee. Her calf is soft, nontender. She is able to dorsiflex and plantar flex. She has 2+ dorsalis pedis pulse. ASSESSMENT AND PLAN: Ms. Sanchez is a 58-year-old female status post right total knee arthroplasty. She has elected to proceed with manipulation under anesthesia of the right total knee. This is scheduled for 05/01/[address] Metzger discussed the risks and benefits and she has elected to proceed. She will follow up with Dr. Metzger in 2 weeks after the procedure. OMID WING [id number]/[facility] #: [id number] JW
[~2019-05-01 06:41] MED LIST changes: -Acetaminophen TAB* 325 MG PO ONE; -Gabapentin CAP(*) 300 MG PO ONE; -Tranexamic Acid 1,000 MG in NS 0.9% 50 ML* (outpatient use) IV SCH; -celeCOXIB CAP* 200 MG PO ONE
[2019-05-01] MEDS ORDERED: Midazolam* 1 MG/ML 2 ML VIAL (2 MG) ONE (06:58)
[2019-05-01] MEDS ORDERED: Buffered Lidocaine 1% SYRIN* 1 ML/SYRINGE INTRADERM ONE (07:26)
[2019-05-01] MEDS ORDERED: Ibuprofen TAB* 400 MG PO PRN (08:46)
[2019-05-01] MEDS ORDERED: Naloxone* 0.4 MG/ML 1 ML VIAL IV PRN (08:46)
[2019-05-01] MEDS ORDERED: HYDROmorphone INJ1* 1 MG/ML SYRINGE ONE ×2 (08:47→09:37)
[2019-05-01] MEDS: HYDROmorphone INJ1* 1 MG/ML SYRINGE IV PRN ×2 (08:48→08:58)
[2019-05-01] MEDS ORDERED: oxyCODONE TAB* 5 MG TAB PO PRN (08:52)
[2019-05-01] MEDS ORDERED: oxyCODONE TAB* 5 MG TAB ONE (09:00)
[2019-05-01] MEDS ORDERED: Ibuprofen TAB* 400 MG ONE (09:11)
[2019-05-01] MEDS ORDERED: HYDROmorphone INJ1* 1 MG/ML SYRINGE IV PRN (09:26)
[2019-05-01 12:04] VITALS: BP 139/88
--- NOTE | 2019-05-02 01:58 | OP ---
DATE OF OPERATION: 05/01/19 - [facility] DATE OF : 64 ATTENDING SURGEON: Qi Metzger MD ANESTHESIOLOGIST: Dr. Castañeda. ANESTHESIA: General. PRE-OP DIAGNOSIS: Arthrofibrosis and painful right total knee arthroplasty. POST-OP DIAGNOSIS: Arthrofibrosis and painful right total knee arthroplasty. OPERATIVE PROCEDURE: Right total knee arthroplasty, manipulation under anesthesia. COMPLICATIONS: None. SPECIMEN: None. ESTIMATED BLOOD LOSS: None. BRIEF HISTORY/INDICATIONS: Ms. Sanchez is a 58-year-old female who is now 2 months after 02/23/19 right total knee arthroplasty. The patient has no intraoperative complications. Postoperatively, she essentially refused to bend the knee due to pain. She was completely noncompliant with Physical Therapy recommendations and my recommendations to bend the knee. She held the knee in full extension nearly like a peg leg and and refused to bend it. By 2 months postop, she had no more than 20 degrees of motion in the knee. I recommended the manipulation under anesthesia to try to regain as much motion as possible. She had formed significant scar tissue. The patient agreed to this. Informed consent was obtained from the patient. She understood the risks of the procedure included but were not limited to bleeding, infection, damage to nearby structures, periprosthetic fracture, continued stiffness, increased pain , anesthesia complications, stroke, heart attack, blood clot and . She wished to proceed. INTRAOPERATIVE FINDINGS: Intraoperatively, the patient was noted to have preop range of motion 3 to 15 degrees of flexion, postop range of motion was 3 to 120 degrees of flexion. DESCRIPTION OF PROCEDURE: Ms. Sanchez was identified in the preanesthesia unit. Her right lower extremity was marked as the correct operative site. Informed consent was signed and placed in the chart. The patient was taken to the operating room and placed under anesthesia without difficulty. Preop time-out was made to correctly identify the patient side and site. Appropriate C-arm was in the room for imaging. The patient's right knee was gently bent and extended multiple times. Gentle pressure was placed across the tibia to increase the amount of flexion with each bend. Audible and palpable crepitus and scar tissue breakup was noted. The knee was easily flexed to 120 degrees. AP and lateral C-arm views confirmed no periprosthetic fracture. The patient's anesthesia was reversed without difficulty. She was taken to the PACU in stable condition. Intended weightbearing will be weightbearing as tolerated. She has aggressive physical therapy scheduled for the next 5 days. I was very last with the patient. If she wants to then refuse to bend the knee, she will lose the motion we have gained today. The patient will follow up in 1 week's time for a range of motion check. [id number]/[facility] #: [id number] MTDD
== END 2019-05-01 12:05 | disposition home or self-care (01) ==
LOC: OR 06:41
PROVIDERS: ATTEND Orthopaedic Surgery Adult Reconstructive Orthopaedic Surgery
DX: T84.82XA Fibrosis due to internal orthopedic prosthetic devices, implants and grafts, initial encounter (principal); Y83.1 Surgical operation with implant of artificial internal device as the cause of abnormal reaction of the patient, or of later complication, without mention of misadventure at the time of the procedure; I10 Essential (primary) hypertension; F41.8 Other specified anxiety disorders; M19.90 Unspecified osteoarthritis, unspecified site
CPT/HCPCS: 76000; A9270-GY; J1170; J2250